=== PATIENT | female | born 1990 | race American Indian/Alaskan Native ===

== ENCOUNTER 2019-04-23 21:24 | Emergency (ER) | payer MEDICAID ==
[2019-04-23 21:31] VITALS: BP 106/74
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
--- NOTE | 2019-04-23 22:31 | Cat Scan Report ---
CT head/brain wo con INDICATION: headache. TECHNIQUE: Routine CT head without contrast. All CT scans at this location are performed using CT dos e reduction for ALARA by means of automated exposure control. COMPARISON: None. FINDINGS: BRAIN / INTRACRANIAL CONTENTS: No acute hemorrhage, mass effect, midline shift, or hydrocephalus. No appreciable acute large territorial or lacunar infarct. No chronic infarct or focal atrophy. Normal b rain volume and ventricular/sulcal size for age. ORBITS: No significant abnormality of visualized orbits. SINUSES / MASTOIDS: No significant abnormality of visualized sinuses and mastoid air cells. ADDITIONAL FINDINGS: None. IMPRESSION: 1. No acute intracranial abnormality. Signer Name: Silvino Amin MD Signed: 04/23/2019 9:27 PM Workstation Name: [id number]
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
== END 2019-04-24 02:38 | disposition home or self-care (01) ==
LOC: ED 21:24
DX: S00.03XA Contusion of scalp, initial encounter (principal); G44.319 Acute post-traumatic headache, not intractable; Z79.899 Other long term (current) drug therapy; Y04.8XXA Assault by other bodily force, initial encounter; Y93.89 Activity, other specified; Y92.89 Other specified places as the place of occurrence of the external cause; Y99.8 Other external cause status
CPT/HCPCS: 70450; 99283